=== PATIENT | male | born 1975 | race Caucasian/White ===

== ENCOUNTER 2017-09-13 13:03 | Emergency (ER) | payer OTHER ==
[~2017-09-13] VITALS: Wt 75.0 kg
[~2017-09-13 13:03] MED LIST: CYCL-319 PO; HYDR-3498 PO; IBUP-1542 PO; OLAN10TA16
[2017-09-13] MEDS ORDERED: CEPH-443 PO (13:50)
[2017-09-13] MEDS ORDERED: HYDR-906 PO (13:50)
--- NOTE | 2017-09-13 14:05 | ERD ---
ER Documentation Chief Complaint Chief Complaint "spider bite", earache HPI 42-year-old male complains of low back pain, right ear pain, and a bite to his right arm. He has a history of chronic low back pain, and he states that he has had problems in the L5-S1, he also has right-sided ear pain, fullness. Additionally he reports he had a bite to his right arm yesterday. He denies any fever, chest pain, shortness breath. That he denies saddle anesthesia or loss of bladder function. ROS All systems reviewed and are negative except as per history of present illness. Medications Home Meds Active Scripts Cephalexin* (Keflex*) 500 Mg Capsule, 500 MG PO QID for 5 Days, CAP Prov:LAUREL KILGORE PA-C 09/13/17 Hydrocodone/Acetaminophen (Hague 5-325 Tablet) 1 Each Tablet, 1 TAB PO Q6H Y for PAIN, #7 TAB Prov:LAUREL KILGORE PA-C 09/13/17 Cyclobenzaprine Hcl* (Cyclobenzaprine Hcl*) 10 Mg Tablet, 10 MG PO TID, #15 TAB Prov:OSBALDO FRIEND NP 05/10/16 Ibuprofen* (Motrin*) 600 Mg Tab, 600 MG PO Q6H Y for PAIN AND OR ELEVATED TEMP, #30 TAB Prov:OSBALDO FRIEND NP 05/10/16 Hydrocodone Bit-Acetaminophen* (Hague*) 5-325 Mg Tab, 1 TAB PO Q6 Y for PAIN, # 20 TAB Prov:OSBALDO FRIEND NP 05/10/16 Reported Medications Olanzapine (Zyprexa) 10 Mg Tablet 10/03/12 Allergies Allergies: Coded Allergies: No Known Allergy (Unverified , 10/03/12) PMhx/Soc History of Surgery: Yes (Hand, Appy, bilateral legs) Anesthesia Reaction: No Hx Neurological Disorder: No Hx Respiratory Disorders: Yes (pneumonia) Hx Cardiac Disorders: No Hx Psychiatric Problems: Yes (schizophrenia, suicidal attempt) Hx Miscellaneous Medical Probl: No Hx Alcohol Use: Yes (2-3 40's per day) Hx Substance Use: Yes (crack and crystal meth) Hx Tobacco Use: Yes Smoking Status: Never smoker Physical Exam Vitals Vital Signs Date Time Temp Pulse Resp B/P Pulse Ox O2 Delivery O2 Flow Rate FiO2 09/13/17 13:06 97.0 101 20 117/67 98 Physical Exam General: Well-developed, well-nourished. The patient appears in no acute distress. HEENT: Head is normocephalic, atraumatic. No scleral icterus. There is no tympanic membrane erythema, bulging, perforation, otorrhea or discharge. Neck: Supple. Nontender. Lungs: Clear to auscultation. Normal air movement. Heart: Regular rate and rhythm. S1 and S2 are normal. No murmurs, gallops, or rubs. Abdomen: Soft, nontender, nondistended. Bowel sounds are normoactive. Extremities: No clubbing or cyanosis. Normal pulses. Moving extremities x 4. No weakness. Neurologic: Alert and oriented 3. No focal deficits. Skin: Insect bite to the right arm with localized erythema and tenderness.. Procedures/MDM 42-year-old male comes in with low back pain, right ear pain, and symmetric. There is local leg swelling and inflammation from insect bite, he has otalgia but no evidence of otitis media, mastoiditis or deep space infection. Clinically he has no signs of cauda equina, or any neurologic injury from the back pain. He has chronic low back pain it looks like he had a prescription for Hague 2016, I have advised him that he should take ibuprofen for pain and we can give him a 2 day course for this as well but he needs to follow-up with his primary care doctor for further refills. Departure Diagnosis: Primary Impression: Low back pain Additional Impressions: Ear pain Insect bite Condition: Good Patient Instructions: Possible Causes of Low Back or Leg Pain, Insect Bites and Stings LAUREL KILGORE PA-C Sep 13, 2017 14:05
== END 2017-09-13 14:04 | disposition home or self-care (01) ==
LOC: FTE 13:03
DX: S40.861A Insect bite (nonvenomous) of right upper arm, initial encounter (principal); M54.5 Low back pain; H92.01 Otalgia, right ear; W57.XXXA Bitten or stung by nonvenomous insect and other nonvenomous arthropods, initial encounter; Y92.9 Unspecified place or not applicable; Z87.891 Personal history of nicotine dependence
CPT/HCPCS: 99284

== ENCOUNTER 2018-06-21 19:12 | Emergency (ER) | END 2018-06-22 01:37 | disposition home or self-care (01) ==